=== PATIENT | female | born 1975 | race Caucasian/White ===

== ENCOUNTER 2017-04-27 09:15 | Emergency (ER) | payer MEDICAID ==
[2017-04-27] MEDS ORDERED: cefTRIAXone 1 GM in Sodium Chloride 0.9% 50 ML IV ONE (09:43)
[2017-04-27 09:58] LABS: % BASOPHILS 1.3 % (0.0-2.0); % EOSINOPHILS 0.7 % (0.0-5.0); % LYMPHOCYTES 12.7 % (20.0-50.0); % MONOCYTES 7.8 % (2.0-10.0); % NEUTROPHILS 77.5 % (40.0-80.0); BASOPHILE ABSOLUTE 0.1 Th/cumm (0-0.2); EOSINOPHILE ABSOLUTE 0.1 Th/cmm (0.1-0.4); HEMATOCRIT 37.7 % (41.0-60); HEMOGLOBIN 12.2 gm/dL (12-16); MEAN CELL VOLUME 75.5 fl (81-100); MEAN CORPUSCULAR HEMOGLOBIN 24.4 pg (27.0-31.0); MEAN CORPUSCULAR HGB CONC 32.3 pg (28.0-36.0); MEAN PLATELET VOLUME 7.6 fl; MONOCYTE ABSOLUTE 0.6 Th/cmm (0.3-1.0); NEUTROPHILE ABSOLUTE 6.1 Th/cmm (1.8-8.0); RED CELL DISTRIBUTION WIDTH 18.1 % (11.5-20.0); WHITE BLOOD COUNT 7.9 Th/cmm (4.8-10.8)
[2017-04-27 09:59] LABS: PLATELET COUNT 408 Th/cmm (150-400)
[2017-04-27 10:06] LABS: URINE MICROSCOPIC INDICATED? YES; URINE SOURCE CLEAN C
[2017-04-27 10:13] LABS: ANION GAP 8.7 (7.0-16.0); BUN - UREA NITROGEN 8 mg/dL (7-25); CALCIUM SERUM 8.9 mg/dL (8.6-10.3); CARBON DIOXIDE 28.1 mEq/L (21.0-31.0); CHLORIDE 103 mEq/L (98-107); CREATININE - SERUM 0.6 mg/dL (0.6-1.2); GFR AFRICAN-AMERICAN > 60.0 ml/min (>90); GFR NON AFRICAN-AMERICAN > 60.0 ml/min; GLUCOSE 98 mg/dL (70-105); POTASSIUM SERUM 3.8 mEq/L (3.5-5.1); SODIUM SERUM 136 mEq/L (136-145)
[2017-04-27 10:24] LABS: URINE BILIRUBIN NEGATIVE (NEGATIVE); URINE BLOOD LARGE (NEGATIVE); URINE CLARITY HAZY (CLEAR); URINE COLOR YELLOW; URINE GLUCOSE (UA) NEGATIVE (NEGATIVE); URINE KETONE NEGATIVE (NEGATIVE); URINE LEUKOCYTE ESTERASE MODERATE (NEGATIVE); URINE NITRATE NEGATIVE (NEGATIVE); URINE PH 6.5 (4.6 - 8.0); URINE PROTEIN NEGATIVE (NEGATIVE); URINE UROBILINOGEN 0.2 E.U./dL (0.2 - 1.0)
[2017-04-27 10:30] LABS: URINE BACTERIA FEW /hpf (NONE SEEN); URINE EPITHELIAL CELLS MODERATE /lpf (FEW)
--- NOTE | 2017-04-27 11:02 | Diagnostic Imaging Report ---
Lumbar spine (3 views) HISTORY: Pain, trauma Alignment is normal. Disc spaces are maintained. No focal lesions. No fractures. IMPRESSION: No acute abnormalities
--- NOTE | 2017-04-27 11:03 | Diagnostic Imaging Report ---
Sacrum/coccyx (2 views) HISTORY: Pain, trauma No acute bony abnormalities. No fractures. IMPRESSION: No acute abnormalities
--- NOTE | 2017-04-27 11:04 | Diagnostic Imaging Report ---
Sacroiliac joints (3 views) HISTORY: Pain The sacroiliac joints appear patent bilaterally. No sclerotic or erosive changes. IMPRESSION: Normal examination
--- NOTE | 2017-04-27 11:51 | ER Physician Documentation ---
DATE OF SERVICE: 04/27/2017 EMERGENCY ROOM EVALUATION AND TREATEMENT CHIEF COMPLAINT: Pain in the butt and radiating into the left side in the back of the right leg somewhere around the knee joint area. It started about yesterday and today also it is hurting, so she came to the Emergency Room. HISTORY OF PRESENT ILLNESS: Besides the above complaint, she has pain in the left molar teeth area and she is seeing a dentist who was giving her amoxicillin capsule. For this pain in the right hip area and the right gluteal area, sciatic area, the patient did not had any injury. She has never had any fall. The patient never had any similar complaints in the past. She does not have any other complaints. She has no hypertension, no diabetes. She says her anemia is probably secondary to hemorrhoids and she is losing blood from there. Her M.D. is aware. The M.D. has not done anything for that condition. PAST MEDICAL HISTORY: Benign and negative. PERSONAL HISTORY: She is . She has three children, one son and , both working in the construction industry. She has 1 son and 2 daughters. ALLERGIES: None known. CURRENT MEDICATIONS: She takes Motrin from time to time and for her teeth she takes amoxicillin 3 times a day for the past 3 days. FAMILY HISTORY: Family is . REVIEW OF SYSTEMS: EYES: No history of double vision, blurring blindness. CENTRAL NERVOUS SYSTEM: No history of TIA, stroke, encephalitis, meningitis. Bones and joints essentially same complaint in the right hip. Otherwise, no other significant complaints. She does not have any fractures, injuries, etc. GASTROINTESTINAL: No history of diarrhea, constipation, vomiting. ENDOCRINE: No diabetes mellitus. No hyper or hypothyroidism. CARDIAC: No history of myocardial infarction, rheumatic fever, valvular heart disease, pericardial disease, cardiomyopathy PULMONARY: No history of pneumonia, TB, pulmonary embolism, COPD, emphysema, bronchitis. No history of lung tumors. CANCER: The patient has no history of any cancer. GENITOURINARY: No burning, frequency, dysuria. The patient's other infectious process is none. She has taken Motrin for past few years here and there as needed. GI: No history of any liver disease, etc. Motor vehicle accident: None. Hospital admissions is none. Normal vaginal delivery. PHYSICAL EXAMINATION: GENERAL: The patient appears to be awake and alert and oriented, not in any acute cardiorespiratory distress. VITAL SIGNS: Vital signs done by the triage nurse team shows temperature to be 98.9, pulse of 86, respirations 17, blood pressure 144/90, oxygen saturation 99. Height is 5 feet 9 inches, weight 160 pounds. Last menstrual period, she is having period now. She has taken tetanus shot. She does not smoke. She does not drink. GENERAL: Benign and negative. JVP is normal. No cyanosis. No petechia, no ecchymosis, no edema over the legs. Straight leg raising test on the right side is about 45 degrees, on the left side is within normal limits. Right side is slightly painful. No edema, no cyanosis, no petechia or ecchymosis. Overall, general exam otherwise is benign and negative. NECK: Supple. EYES: Eyes are normal. Conjunctivae is pink, sclerae white. HEENT: Normal. CHEST: Clear. Trachea being in central fairly good air entry in both lungs. Heart reveals PMI is located in the fifth intercostal space midclavicular line. S1, S2 are normal. Fourth heart sound is present. Third heart sound is absent. Second heart sound physiologically split. ABDOMEN: Soft, benign, negative. No surgical scars are present. CLINICAL IMPRESSION: The patient came with pain in the right gluteal area. It seems to be like she may be having some kind of sciatic pain. Otherwise, no significant abnormality has been seen. Straight leg raising test is slightly decreased to normal 45 degree angle. The left is normal. The patient has no injury. The patient will get x-ray of the sacroiliac joint. If it is negative, the patient will be sent home on some Tylenol and some Aleve to be taken. If not Aleve, we might give her some Ultram 30 mg tablet to be taken three times a day along with Tylenol as and when needed and hopefully this should get better. Other problem is pain in her left molar area. OTHER DIAGNOSES: Includes patient has a history of anemia. She says it is because of the hemorrhoids. Once we get the results of the things we will plan to see what we can do for her. In the meantime, we will give her some ceftriaxone for the teeth pain and some Toradol 30 mg, statin. X-ray of the lumbosacral spine. [facility]# [id number]
[2017-04-27] MEDS ORDERED: Levofloxacin 500mg/100mL 500 MG/100 ML BAG IV ONE (17:12)
--- NOTE | 2017-04-27 21:12 | ER Physician Documentation ---
DATE OF SERVICE: 04/27/2017 The patient is seen in the Emergency Room and she is being discharged today back to her home on 04/27/2017. I just got the lab results. I was called by the nurse. She has some blood in the urine and a few wbc's in the urine. Electrolytes show sodium to be 136, potassium 3.8, chloride 103, CO2 of 28.1, glucose is 98, BUN is 8, creatinine is 0.6. White count is 7.9, hemoglobin is ____, hematocrit is 37.7, platelet count is 467, lymphocytes 12.7. X-ray of the disk spaces, etc., are no acute abnormality seen in the sacrum and the coccyx as well as in the lumbosacral spine. Sacroiliac joints also appear to be normal. The patient was told that she is going home. She does not have any definite evidence of any disease process or fracture. Most likely, she may be having sciatica and her blood pressure is 140/90, maybe because of the pain. She can take some Motrin tablet 400 mg 3-4 times a day and she is to go back and see her doctor and if the blood pressure is high, her doctor can give her medication, but at this time the patient has pain, I think I can give her some blood pressure medication in the form of some Lopressor 50 mg once a day and Motrin 200 mg tablets 2 tablets 3-4 times a day and for urinary tract she has few wbc's in the urine, but because the patient has blood, the wbc's may be present because of that, so the final diagnosis is: 1. Pain in the right, but maybe secondary to sciatica. 2. The patient has electrolytes, etc. All lab workup, etc., are found to be normal. She has some blood in the urine. She is having her period at the present moment. White count has been normal. She is advised to go home. The x-rays are normal. The nurse will give the patient the prescription. I had spoke to them that she can go back and see her doctor. JOB# [id number]
== END 2017-04-27 11:45 | disposition home or self-care (01) ==
LOC: ER 09:15
DX: M54.31 Sciatica, right side (principal)
CPT/HCPCS: 99285; 96372; 72100; 72202; 72220; 36415; 85025; 81001; 81025; 80048; J1885; J1956